=== PATIENT | male | born 1995 | race Caucasian/White ===

== ENCOUNTER 2018-01-29 20:12 | Emergency (ER) | payer OTHER ==
[~2018-01-29] VITALS: Ht 182.9 cm; Wt 81.7 kg
[2018-01-29] MEDS ORDERED: PROBIOTIC1 EAC1 PO (20:49)
[2018-01-29] MEDS ORDERED: KEFLEX500 M1 PO (21:08)
[2018-01-29 22:26] VITALS: BP 105/75
== END 2018-01-29 22:32 | disposition home or self-care (01) ==
LOC: ER 20:12
DX: S61.412A Laceration without foreign body of left hand, initial encounter (principal); J45.909 Unspecified asthma, uncomplicated; V18.0XXA Pedal cycle driver injured in noncollision transport accident in nontraffic accident, initial encounter; Y93.55 Activity, bike riding; Y92.89 Other specified places as the place of occurrence of the external cause; Y99.8 Other external cause status

== ENCOUNTER 2018-02-12 17:46 | Emergency (ER) | payer OTHER ==
[~2018-02-12] VITALS: Ht 182.9 cm; Wt 79.4 kg
[~2018-02-12 17:46] MED LIST: KEFLEX500 M1 PO; PROBIOTIC1 EAC1 PO
[2018-02-12 18:00] VITALS: BP 144/75
== END 2018-02-12 19:04 | disposition home or self-care (01) ==
LOC: ER 17:46
DX: S61.412D Laceration without foreign body of left hand, subsequent encounter (principal); J45.909 Unspecified asthma, uncomplicated; V19.9XXD Pedal cyclist (driver) (passenger) injured in unspecified traffic accident, subsequent encounter